=== PATIENT | male | born 1975 | race Two or more races ===

== ENCOUNTER 2018-01-22 01:09 | Emergency (ER) | payer SELFPAY ==
[2018-01-22 01:54] VITALS: PULSE 101; RESP 18; TEMP 97.6; O2SAT 96
--- NOTE | 2018-01-22 02:00 | ED PDOC ---
HPI: Psych/Substance Abuse Time Seen by Provider: 01/22/18 01:33 Chief Complaint (Nursing): Alcohol Ingestion Chief Complaint (Provider): Alcohol abuse History Per: Patient History/Exam Limitations: no limitations Current Symptoms Are (Timing): Still Present Additional Complaint(s): 42 yo male with no medical problems brought by EMs for evaluation of ETOH. 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 Pt ambulated with steady gait on arrival. PT denies any complaints. Past Medical History Reviewed: Historical Data, Nursing Documentation, Vital Signs Vital Signs: Last Vital Signs Temp 97.6 F 01/22/18 01:32 Pulse 101 H 01/22/18 01:32 Resp 18 01/22/18 01:32 BP Pulse Ox 96 01/22/18 01:32 - Medical History PMH: No Chronic Diseases - Surgical History Surgical History: No Surg Hx - Family History Family History: States: No Known Family Hx - Living Arrangements Living Arrangements: With Family - Social History Current smoker - smoking cessation education provided: No Alcohol: Occasional - Allergies Allergies/Adverse Reactions: Allergies Allergy/AdvReac Type Severity Reaction Status Date / Time No Known Allergies Allergy Verified 01/22/18 01:52 Review of Systems ROS Statement: Except As Marked, All Systems Reviewed And Found Negative Constitutional: Negative for: Fever, Chills Cardiovascular: Negative for: Chest Pain, Palpitations Respiratory: Negative for: Cough, Shortness of Breath Gastrointestinal: Negative for: Abdominal Pain Physical Exam - Reviewed Nursing Documentation Reviewed: Yes Vital Signs Reviewed: Yes - Physical Exam Appears: Positive for: Well, Non-toxic, No Acute Distress Head Exam: Positive for: ATRAUMATIC, NORMAL INSPECTION, NORMOCEPHALIC Skin: Positive for: Normal Color, Warm, DRY Eye Exam: Positive for: Normal appearance, EOMI, PERRL, Conjunctival injection ENT: Positive for: Normal ENT Inspection Neck: Positive for: Normal, Painless ROM Cardiovascular/Chest: Positive for: Regular Rate, Rhythm Respiratory: Positive for: CNT, Normal Breath Sounds Gastrointestinal/Abdominal: Positive for: Normal Exam, Soft Back: Positive for: Normal Inspection Extremity: Positive for: Normal ROM Neurologic/Psych: Positive for: Alert, 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 Negative for : Aphasia, Facial Droop - ECG O2 Sat by Pulse Oximetry: 96 Disposition - Clinical Impression Clinical Impression: Alcohol abuse - Patient ED Disposition Is Patient to be Admitted: No Counseled Patient/Family Regarding: Diagnosis, Need For Followup - Disposition Disposition: Routine/Home Disposition Time: 01:59 Condition: STABLE Instructions: Effects of Alcohol on Your Health
== END 2018-01-22 06:31 | disposition home or self-care (01) ==
LOC: H.ER 01:09
DX: F10.10 Alcohol abuse, uncomplicated (principal)